=== PATIENT | male | born 1975 | race Hispanic/Latino ===

== ENCOUNTER 2021-05-06 17:34 | Emergency (ER) | payer SELFPAY ==
[~2021-05-06] VITALS: Ht 160 cm; Wt 63.5 kg
[2021-05-06] MEDS ORDERED: TETANUS/DIPHTHERIA TOXOID [ADULT] 0.5 ML VIAL IM ONE (18:00)
[2021-05-06] MEDS ORDERED: LIDOCAINE 1%-EPI 1:100,000 20 ML VIAL IJ SCH (18:00)
[2021-05-06] MEDS ORDERED: LIDOCAINE HCL MPF 1% 5ML VIAL ONE (18:12)
[2021-05-06] MEDS ORDERED: CEFTRIAXONE 1G VIAL IM STA (18:23)
[2021-05-06] MEDS ORDERED: CEPH500B PO (19:00)
[2021-05-06] MEDS ORDERED: ACET-66 PO (19:01)
[2021-05-06 19:26] VITALS: BP 146/88
== END 2021-05-06 19:27 | disposition home or self-care (01) ==
LOC: EDH 17:34
DX: S41.111A Laceration without foreign body of right upper arm, initial encounter (principal); E11.9 Type 2 diabetes mellitus without complications; I10 Essential (primary) hypertension; W25.XXXA Contact with sharp glass, initial encounter; Y93.89 Activity, other specified; Y92.89 Other specified places as the place of occurrence of the external cause; Y99.8 Other external cause status
CPT/HCPCS: 12002; 90471; 90714; 96372; 99284; J0696; J3490

== ENCOUNTER 2023-12-01 18:36 | Emergency (ER) | payer OTHER ==
[~2023-12-01] VITALS: Ht 160 cm; Wt 74.8 kg
[~2023-12-01 18:36] MED LIST: ACET-2079 PO; FOLI1 PO; GABA-529 PO; METF-526 PO
[2023-12-01 18:41] VITALS: BP 155/98; PULSE 97; RESP 18
== END 2023-12-01 22:41 | disposition home or self-care (01) ==
LOC: EDH 18:36
DX: M79.672 Pain in left foot (principal); E11.9 Type 2 diabetes mellitus without complications; I10 Essential (primary) hypertension; Z79.899 Other long term (current) drug therapy; Z79.01 Long term (current) use of anticoagulants; Z89.512 Acquired absence of left leg below knee; X50.1XXA Overexertion from prolonged static or awkward postures, initial encounter; Y93.01 Activity, walking, marching and hiking; Y92.89 Other specified places as the place of occurrence of the external cause; Y99.8 Other external cause status
CPT/HCPCS: 73590; 73610; 73630

== ENCOUNTER 2024-01-04 14:07 | Emergency (ER) | payer OTHER ==
[~2024-01-04] VITALS: Ht 160 cm; Wt 68.0 kg
[2024-01-04 15:59] LABS: BASOPHILS # (AUTO) 0.02 K/uL (0.00-0.20); BASOPHILS % (AUTO) 0.2 % (0.0-5.0); EOSINOPHILS # (AUTO) 0.07 K/uL (0.00-0.70); EOSINOPHILS % (AUTO) 0.8 % (0.0-8.0); HEMATOCRIT 38.6 % (42-54); IMMATURE GRANULOCYTE ABSOLUTE 0.03 K/uL (0-1); LYMPHOCYTES # (AUTO) 3.7 K/uL (1.0-4.8); MEAN CORPUSCULAR HEMOGLOBIN 29.3 pg (27.0-33.0); MEAN CORPUSCULAR HGB CONC 34.2 g/dL (32.0-36.0); MEAN CORPUSCULAR VOLUME 85.6 fL (79-99); MONOCYTES # (AUTO) 0.6 K/uL (0.1-1.0); MONOCYTES % (AUTO) 6.7 % (3.0-13.0); NEUTROPHILS # (AUTO) 4.1 K/uL (1.8-7.7); NEUTROPHILS % (AUTO) 47.9 % (40.0-77.0); PLATELET COUNT (AUTO) 369 K/uL (130-400); RED BLOOD CELL COUNT(AUTO) 4.51 MIL/uL (4.50-6.20); RED CELL DISTRIBUTION WIDTH 13.5 % (11.0-15.5); WHITE BLOOD COUNT (AUTO) 8.5 K/uL (4.8-10.8)
[2024-01-04 16:03] VITALS: BP 149/94; PULSE 86; RESP 16; O2SAT 100
[2024-01-04 16:08] LABS: CREATININE 0.9 mg/dL (0.5-1.3); POTASSIUM 3.9 mmol/L (3.5-5.1)
[2024-01-04 16:12] LABS: ALBUMIN 3.8 g/dL (3.5-5.0); BILIRUBIN,TOTAL 0.3 mg/dL (0.2-1.0); TOTAL PROTEIN, SERUM 8.7 g/dL (6.0-8.3)
[2024-01-04] MEDS: MORPHINE 2 MG SYG IM ONE (16:38)
[2024-01-04] MEDS ORDERED: OXYC-38 PO (17:43)
[2024-01-04] MEDS ORDERED: CLIN-141 PO (17:43)
== END 2024-01-04 18:18 | disposition home or self-care (01) ==
LOC: EDH 14:07
DX: F41.9 Anxiety disorder, unspecified (principal); M79.671 Pain in right foot; I73.9 Peripheral vascular disease, unspecified; E11.52 Type 2 diabetes mellitus with diabetic peripheral angiopathy with gangrene; Z79.84 Long term (current) use of oral hypoglycemic drugs; Z79.899 Other long term (current) drug therapy; Z89.512 Acquired absence of left leg below knee
CPT/HCPCS: 99284; 80053; 85025; 36415; 73630; 96372; J2270

== ENCOUNTER 2024-03-12 12:52 | Inpatient (IN) | payer BC ==
[~2024-03-12] VITALS: Ht 162.6 cm; Wt 64.0 kg
[~2024-03-12 12:52] MED LIST changes: +CLIN-141 PO; +OXYC-38 PO
[2024-03-12 13:30] LABS: BASOPHILS # (AUTO) 0.03 K/uL (0.00-0.20); BASOPHILS % (AUTO) 0.3 % (0.0-5.0); EOSINOPHILS # (AUTO) 0.13 K/uL (0.00-0.70); EOSINOPHILS % (AUTO) 1.5 % (0.0-8.0); HEMATOCRIT 39.2 % (42-54); IMMATURE GRANULOCYTE ABSOLUTE 0.03 K/uL (0-1); LYMPHOCYTES # (AUTO) 2.7 K/uL (1.0-4.8); LYMPHOCYTES % (AUTO) 31.5 % (21.0-51.0); MEAN CORPUSCULAR HGB CONC 33.4 g/dL (32.0-36.0); MEAN CORPUSCULAR VOLUME 89.9 fL (79-99); MONOCYTES # (AUTO) 0.5 K/uL (0.1-1.0); MONOCYTES % (AUTO) 5.8 % (3.0-13.0); NEUTROPHILS # (AUTO) 5.2 K/uL (1.8-7.7); NEUTROPHILS % (AUTO) 60.6 % (40.0-77.0); PLATELET COUNT (AUTO) 357 K/uL (130-400); RED BLOOD CELL COUNT(AUTO) 4.36 MIL/uL (4.50-6.20); RED CELL DISTRIBUTION WIDTH 13.2 % (11.0-15.5); WHITE BLOOD COUNT (AUTO) 8.6 K/uL (4.8-10.8)
[2024-03-12] MEDS: 0.9%NACL 1000ML 1,000 ML IV ONE (13:56)
[2024-03-12] MEDS: ondanSETRON 4MG INJ IVP ONE ×2 (13:56→16:21)
[2024-03-12] MEDS: PANTOPrazole 40 MG/VIAL IVP ONE (13:56)
[2024-03-12 15:14] LABS: BILIRUBIN,DIRECT 0.1 mg/dL (0.0-0.3); BILIRUBIN,TOTAL 0.4 mg/dL (0.2-1.0); TOTAL PROTEIN, SERUM 8.6 g/dL (6.0-8.3)
[2024-03-12 16:05] LABS: APPEARANCE,URINE CLEAR (CLEAR); BILIRUBIN,URINE NEGATIVE (NEGATIVE); COLOR,URINE LIGHT-YELLOW (YELLOW); GLUCOSE, URINE (UA) NEGATIVE (NEGATIVE); KETONES,URINE NEGATIVE (NEGATIVE); LEUKOCYTE ESTERASE ,URINE NEGATIVE Leu/uL (NEGATIVE); NITRATE,URINE NEGATIVE (NEGATIVE); OCCULT BLOOD,URINE NEGATIVE (NEGATIVE); PH,URINE 5.5 (5.0-8.0); PROTEIN,URINE NEGATIVE (NEGATIVE); UROBILINOGEN,URINE 0.2 mg/dL (0.2-1.0)
[2024-03-12 16:08] LABS: ADD UA MICROSCOPIC YES
[2024-03-12 16:21] LABS: MUCUS,URINE RARE LPF (None Seen); WBC,URINE 0-1 /HPF (0-1)
[2024-03-12] MEDS ORDERED: IOHEXOL-350 75 ML VIAL IV ONE (17:51)
[2024-03-12] MEDS ORDERED: DEXTROSE 50%-WATER 50 ML DISP.SYRIN IV PRN (19:30)
[2024-03-12] MEDS ORDERED: PoTASSium chloRIDE 20MEQ/100ML 100 ML IV PRN (19:30)
[2024-03-12] MEDS ORDERED: GLUCAGON 1MG KIT 1 MG ML IM PRN (19:30)
[2024-03-12] MEDS ORDERED: 0.9%NACL 1000ML 1,000 ML IV SCH (19:30)
[2024-03-12] MEDS ORDERED: acetaMINOPHEN 325 MG TAB PO PRN ×2 (19:30)
[2024-03-12] MEDS ORDERED: ondanSETRON 4MG INJ IV PRN (19:30)
[2024-03-12] MEDS: INSULIN humuLIN R 100 UNIT/ML 3ML SQ SCH (21:00)
[2024-03-12] MEDS: ASPIRIN 300 MG SUPPOSITORY PR ONE (21:54)
[2024-03-12] MEDS: metRONIDazole 500MG/100ML BAG 100 ML IV SCH (21:54)
[2024-03-12] MEDS: FAMOTIDINE 20MG VIAL IV SCH (21:54)
[2024-03-12] MEDS: LACTATED RINGERS 1000ML 1,000 ML IV SCH (22:02)
[2024-03-12 22:55] VITALS: BP 165/90; PULSE 79; RESP 18; TEMP 98.2
[2024-03-13] VITALS (7 sets, daily range): BP systolic 129–166; BP diastolic 71–103; PULSE 80–91; RESP 18–19; TEMP 98.1–99; O2SAT 99
[2024-03-13 05:09] LABS: BASOPHILS # (AUTO) 0.04 K/uL (0.00-0.20); BASOPHILS % (AUTO) 0.4 % (0.0-5.0); EOSINOPHILS # (AUTO) 0.15 K/uL (0.00-0.70); EOSINOPHILS % (AUTO) 1.3 % (0.0-8.0); HEMATOCRIT 37.1 % (42-54); IMMATURE GRANULOCYTE ABSOLUTE 0.04 K/uL (0-1); LYMPHOCYTES # (AUTO) 2.7 K/uL (1.0-4.8); LYMPHOCYTES % (AUTO) 24.4 % (21.0-51.0); MEAN CORPUSCULAR HGB CONC 33.2 g/dL (32.0-36.0); MEAN CORPUSCULAR VOLUME 90.5 fL (79-99); MONOCYTES # (AUTO) 0.8 K/uL (0.1-1.0); MONOCYTES % (AUTO) 7.4 % (3.0-13.0); NEUTROPHILS # (AUTO) 7.5 K/uL (1.8-7.7); NEUTROPHILS % (AUTO) 66.1 % (40.0-77.0); PLATELET COUNT (AUTO) 320 K/uL (130-400); RED CELL DISTRIBUTION WIDTH 13.3 % (11.0-15.5); WHITE BLOOD COUNT (AUTO) 11.3 K/uL (4.8-10.8)
[2024-03-13 05:27] LABS: ALBUMIN 3.4 g/dL (3.5-5.0); BILIRUBIN,TOTAL 0.5 mg/dL (0.2-1.0); CREATININE 0.9 mg/dL (0.5-1.3); MAGNESIUM 1.6 mg/dL (1.80-2.40); POTASSIUM 3.7 mmol/L (3.5-5.1); TOTAL PROTEIN, SERUM 7.6 g/dL (6.0-8.3)
[2024-03-13 05:37] LABS: HEMOGLOBIN A1C 5.9 % (4.0-6.0)
[2024-03-13] MEDS: MAGNESIUM 2GM PREMIX 50ML 50 ML IV PRN (05:50)
[2024-03-13] MEDS: hydrALAZine 20MG/ML VIAL IV PRN (12:30)
[2024-03-13] MEDS: PoTASSium chloRIDE 20MEQ ER 20 MEQ ERTAB PO ONE (14:22)
[2024-03-14] VITALS (10 sets, daily range): BP systolic 131–166; BP diastolic 81–96; PULSE 75–90; RESP 16–20; TEMP 97.6–98.6; O2SAT 99–100
[2024-03-14 05:03] LABS: BASOPHILS # (AUTO) 0.03 K/uL (0.00-0.20); BASOPHILS % (AUTO) 0.4 % (0.0-5.0); EOSINOPHILS # (AUTO) 0.14 K/uL (0.00-0.70); EOSINOPHILS % (AUTO) 1.9 % (0.0-8.0); HEMATOCRIT 36.8 % (42-54); IMMATURE GRANULOCYTE ABSOLUTE 0.02 K/uL (0-1); LYMPHOCYTES # (AUTO) 2.4 K/uL (1.0-4.8); LYMPHOCYTES % (AUTO) 32.2 % (21.0-51.0); MEAN CORPUSCULAR HEMOGLOBIN 29.8 pg (27.0-33.0); MEAN CORPUSCULAR HGB CONC 33.2 g/dL (32.0-36.0); MEAN CORPUSCULAR VOLUME 89.8 fL (79-99); MONOCYTES # (AUTO) 0.6 K/uL (0.1-1.0); NEUTROPHILS # (AUTO) 4.2 K/uL (1.8-7.7); NEUTROPHILS % (AUTO) 57.2 % (40.0-77.0); PLATELET COUNT (AUTO) 325 K/uL (130-400); RED CELL DISTRIBUTION WIDTH 13.3 % (11.0-15.5); WHITE BLOOD COUNT (AUTO) 7.4 K/uL (4.8-10.8)
[2024-03-14 05:33] LABS: ALBUMIN 3.5 g/dL (3.5-5.0); BILIRUBIN,TOTAL 0.3 mg/dL (0.2-1.0); MAGNESIUM 2.1 mg/dL (1.80-2.40); POTASSIUM 3.9 mmol/L (3.5-5.1); TOTAL PROTEIN, SERUM 7.5 g/dL (6.0-8.3)
[2024-03-14] MEDS: REGADENOSON 0.4 MG/5 ML PF SYG IVP SCH (10:46)
[2024-03-14] MEDS: LISINOPRIL 10 MG TABLET PO ONE (15:00)
[2024-03-14] MEDS: GABApentin 100 MG CAPSULE PO SCH (20:44)
[2024-03-15 03:24] VITALS: BP 122/84; PULSE 87; RESP 17; TEMP 98.1
[2024-03-15 03:44] LABS: BASOPHILS # (AUTO) 0.03 K/uL (0.00-0.20); BASOPHILS % (AUTO) 0.5 % (0.0-5.0); EOSINOPHILS # (AUTO) 0.19 K/uL (0.00-0.70); EOSINOPHILS % (AUTO) 3.2 % (0.0-8.0); HEMATOCRIT 36.9 % (42-54); IMMATURE GRANULOCYTE ABSOLUTE 0.02 K/uL (0-1); LYMPHOCYTES # (AUTO) 2.1 K/uL (1.0-4.8); LYMPHOCYTES % (AUTO) 35.3 % (21.0-51.0); MEAN CORPUSCULAR HEMOGLOBIN 30.3 pg (27.0-33.0); MEAN CORPUSCULAR HGB CONC 33.9 g/dL (32.0-36.0); MEAN CORPUSCULAR VOLUME 89.6 fL (79-99); MONOCYTES # (AUTO) 0.5 K/uL (0.1-1.0); MONOCYTES % (AUTO) 9.1 % (3.0-13.0); NEUTROPHILS # (AUTO) 3.1 K/uL (1.8-7.7); NEUTROPHILS % (AUTO) 51.6 % (40.0-77.0); PLATELET COUNT (AUTO) 309 K/uL (130-400); RED BLOOD CELL COUNT(AUTO) 4.12 MIL/uL (4.50-6.20); RED CELL DISTRIBUTION WIDTH 13.2 % (11.0-15.5)
[2024-03-15 04:05] LABS: ALBUMIN 3.4 g/dL (3.5-5.0); BILIRUBIN,TOTAL 0.3 mg/dL (0.2-1.0); CREATININE 1.2 mg/dL (0.5-1.3); MAGNESIUM 1.9 mg/dL (1.80-2.40); POTASSIUM 3.9 mmol/L (3.5-5.1); TOTAL PROTEIN, SERUM 7.5 g/dL (6.0-8.3)
[2024-03-15] MEDS: MAGNESIUM 2GM PREMIX 50ML 50 ML IV SCH (04:16)
[2024-03-15 08:00] VITALS: BP 146/97; PULSE 94; RESP 16; TEMP 98.7; O2SAT 96
[2024-03-15] MEDS: metOPROLol sucCINATE 25 MG TAB.SR.24H PO SCH (09:16)
[2024-03-15] MEDS: amLODIPine 5 MG TAB PO SCH (09:17)
[2024-03-15] MEDS: atorVAStatin 20 MG TABLET PO SCH (09:17)
[2024-03-15] MEDS: LISINOPRIL 10 MG TABLET PO SCH (09:17)
[2024-03-15] MEDS: ASPIRIN 81MG CHEW TAB PO SCH (09:18)
[2024-03-15] MEDS: cloPIDOgrel 75MG TAB PO SCH (09:18)
[2024-03-15] MEDS: FOLic ACID 1 MG TABLET PO SCH (09:18)
[2024-03-15] MEDS ORDERED: CLOP-31 PO (11:05)
[2024-03-15] MEDS ORDERED: ASPI-1005 PO (11:05)
[2024-03-15] MEDS ORDERED: LISI10TA24 PO (11:05)
[2024-03-15] MEDS ORDERED: ATOR20TA65 PO (11:05)
[2024-03-15] MEDS ORDERED: AMLO5TAB4 PO (11:05)
[2024-03-15] MEDS ORDERED: METO25TA3 PO (11:05)
[2024-03-15 12:00] VITALS: BP 149/87; PULSE 74; RESP 16; TEMP 98.4
== END 2024-03-15 14:35 | disposition home or self-care (01) | DRG 392 ==
LOC: EDH 12:52 → EDHIP 19:23 → 4CH 22:55
PROVIDERS: ADMIT Internal Medicine; ATTEND Internal Medicine
DX: K52.9 Noninfective gastroenteritis and colitis, unspecified (principal); E87.1 Hypo-osmolality and hyponatremia; D64.9 Anemia, unspecified; E11.51 Type 2 diabetes mellitus with diabetic peripheral angiopathy without gangrene; E11.65 Type 2 diabetes mellitus with hyperglycemia; E87.8 Other disorders of electrolyte and fluid balance, not elsewhere classified; L97.519 Non-pressure chronic ulcer of other part of right foot with unspecified severity; Z89.511 Acquired absence of right leg below knee; Z89.512 Acquired absence of left leg below knee; E11.621 Type 2 diabetes mellitus with foot ulcer; E83.42 Hypomagnesemia; I10 Essential (primary) hypertension; E78.00 Pure hypercholesterolemia, unspecified; I25.10 Atherosclerotic heart disease of native coronary artery without angina pectoris; Z79.84 Long term (current) use of oral hypoglycemic drugs; Z86.73 Personal history of transient ischemic attack (TIA), and cerebral infarction without residual deficits
CPT/HCPCS: 36415; 71045; 74177; 78452; 80048; 80053; 80061; 80076; 81001; 82150; 82550; 82948; 83036; 83690; 83735; 84145; 84484; 85025; 93005; 93017; 93306; 93356; 93925; 96365; 96375; A9500; G0378; J0360; J1815; J2405; J2470; J2785; J3475; J3490; J7030; J7120; Q9967